=== PATIENT | female | born 1980 | race Caucasian/White ===

== ENCOUNTER 2024-05-27 18:28 | Emergency (ER) | payer MEDICAID ==
[~2024-05-27] VITALS: Ht 167.6 cm; Wt 82.0 kg
[2024-05-27 18:31] VITALS: BP 108/66; PULSE 98; RESP 16; TEMP 97.6; O2SAT 98
[2024-05-27] MEDS ORDERED: LEVETIRACETAM 500MG TABLET PO ONE (18:45)
[2024-05-27] MEDS ORDERED: CHLORDIAZEPOXIDE 25MG CAPSULE PO ONE (18:45)
== END 2024-05-27 20:38 | disposition left against medical advice (07) ==
LOC: ER 18:28
DX: R56.9 Unspecified convulsions (principal); G93.41 Metabolic encephalopathy; F10.129 Alcohol abuse with intoxication, unspecified; Z65.3 Problems related to other legal circumstances; Y90.9 Presence of alcohol in blood, level not specified
CPT/HCPCS: 99283